=== PATIENT | female | born 1985 | race Two or more races ===

== ENCOUNTER 2019-03-29 13:09 | Emergency (ER) | payer OTHER, MEDICAID ==
[~2019-03-29] VITALS: Ht 152.4 cm; Wt 76.2 kg
[2019-03-29 13:20] VITALS: BP 110/75
--- NOTE | 2019-03-29 13:30 | NUR ---
ED Nurse Note: PT WALKED IN DUE TO LIGHT VAGINAL BLEEDING SINCE YESTERDAY AND DOES NOT KNOW HOW MUCH PADS SHE CONSUMES PER DAY. DENIES ABD PAIN/CRAMPING. STATE SHE IS 2 MONTHS . AAOX4, AMBULATORY WITH NO RESPIRATORY DISTRESS.
--- NOTE | 2019-03-29 14:01 | NUR ---
ED Nurse Note: COLLECTED BLOOD/URINE THEN SENT.
--- NOTE | 2019-03-29 14:05 | NUR ---
ED Nurse Note: PT TAKEN TO US VIA WHEELCHAIR.
[2019-03-29 14:58] LABS: EOSINOPHILS % (AUTO) 5.8 % (0.0-3.0); HEMATOCRIT 41.8 % (37.0-47.0); LYMPHOCYTES % (AUTO) 29.2 % (20.0-45.0); MEAN CORPUSCULAR VOLUME 90 FL (80-99); MONOCYTES % (AUTO) 8.5 % (1.0-10.0); NEUTROPHILS % (AUTO) 55.4 % (45.0-75.0); PLATELET COUNT 283 K/UL (150-450); RED BLOOD COUNT 4.63 M/UL (4.20-5.40); RED CELL DISTRIBUTION WIDTH 10.8 % (11.6-14.8); WHITE BLOOD COUNT 8.6 K/UL (4.8-10.8)
--- NOTE | 2019-03-29 15:00 | NUR ---
ED Nurse Note: PT CAME BACK FROM US VIA WHEELCHAIR AND STABLE.
--- NOTE | 2019-03-29 15:07 | NUR ---
Note wyatt in EDM - 03/29/19 at 1508 by PATRICIA ED Nurse Note: BLANKETS PROVIDED TO PT. PAIN MED GIVEN.
[2019-03-29 15:09] LABS: ANION GAP 12 mmol/L (5-15); APPEARANCE,URINE CLEAR; BILIRUBIN, URINE NEGATIVE (NEGATIVE); BLOOD UREA NITROGEN 7 mg/dL (7-18); CALCIUM 9.3 MG/DL (8.5-10.1); CARBON DIOXIDE 25 MMOL/L (21-32); CHLORIDE 104 MMOL/L (98-107); COLOR,URINE PALE YELLOW; CREATININE 0.6 MG/DL (0.55-1.30); GLUCOSE, URINE (UA) NEGATIVE (NEGATIVE); KETONES,URINE NEGATIVE (NEGATIVE); LEUKOCYTE ESTERASE ,URINE NEGATIVE (NEGATIVE); NITRITE,URINE NEGATIVE (NEGATIVE); PH,URINE 7 (4.5-8.0); POTASSIUM 3.8 MMOL/L (3.5-5.1); PROTEIN,URINE NEGATIVE (NEGATIVE); SODIUM 141 MMOL/L (136-145); UROBILINOGEN,URINE NORMAL MG/DL (0.0-1.0)
[2019-03-29 15:10] LABS: ALANINE AMINOTRANSFERASE 31 U/L (12-78); ALBUMIN 3.8 G/DL (3.4-5.0); ALBUMIN/GLOBULIN RATIO 0.9 (1.0-2.7); ALKALINE PHOSPHATASE 82 U/L (46-116); ASPARTATE AMINO TRANSFERASE 21 U/L (15-37); BILIRUBIN,TOTAL 0.3 MG/DL (0.2-1.0)
--- NOTE | 2019-03-29 15:57 | Emergency Room Report ---
History of Present Illness General Chief Complaint: Vaginal Source: Patient Present Illness HPI 33-year-old female presents to the emergency department complaining of vaginal bleed x2 days. Patient states that she is in her second month of . Patient denies pain. Patient is G2, P1 with previous normal vaginal delivery without complications during the . Patient denies trauma or fall she is unable to estimate how much blood she is lost she reports that she went through 2 or 3 of the thin pads. Patient recently had OB evaluation at a [facility] clinic. Patient denies previous complications this far she denies fevers, chills, nausea or vomiting. She denies vaginal d/c other than blood, denies rashes, sores or swollen tender lymph nodes. Allergies: Coded Allergies: No Known Allergies (Unverified , 03/29/19) Patient History Past Medical History: see triage record Past Surgical History: none Pertinent Family History: none Last Menstrual Period: 01/19/19 Now: Yes - 2 MONTHS : 2 Para: 1 Reviewed Nursing Documentation: PMH: Agreed; PSxH: Agreed Nursing Documentation-PMH Past Medical History: No Stated History Review of Systems All Other Systems: negative except mentioned in HPI Physical Exam Vital Signs Date Time Temp Pulse Resp B/P (MAP) Pulse Ox O2 Delivery O2 Flow Rate FiO2 03/29/19 13:20 98.4 90 16 110/75 (87) 100 Sp02 EP Interpretation: reviewed, normal General Appearance: no apparent distress, alert, GCS 15, non-toxic Head: normocephalic, atraumatic Eyes: bilateral eye normal inspection, bilateral eye PERRL ENT: hearing grossly normal, normal voice Neck: full range of motion Respiratory: lungs clear, normal breath sounds, speaking full sentences Cardiovascular #1: regular rate, rhythm Gastrointestinal: normal bowel sounds, non tender, soft, non-distended, no guarding Genitourinary: normal inspection, no CVA tenderness, cervix normal, ext genitalia/vag normal, os closed Musculoskeletal: gait/station normal, normal range of motion, non-tender Neurologic: alert, oriented x3, responsive, motor strength/tone normal, sensory intact, speech normal, grossly normal Psychiatric: judgement/insight normal Lymphatic: no adenopathy Medical Decision Making PA Attestation Dr. Nunez is my supervising Physician whom patient management has been discussed with. Diagnostic Impression: Primary Impression: Threatened in early ER Course 33-year-old female presents to the emergency department complaining of vaginal bleed x2 days. Patient states that she is in her second month of . Patient denies pain. Patient is G2, P1 with previous normal vaginal delivery without complications during the . Patient denies trauma or fall she is unable to estimate how much blood she is lost she reports that she went through 2 or 3 of the thin pads. Patient recently had OB evaluation at a women's clinic. Patient denies previous complications this far she denies fevers, chills, nausea or vomiting. She denies vaginal d/c other than blood, denies rashes, sores or swollen tender lymph nodes. Ddx considered but are not limited to: Fibroid, ectopic , Fibroid, Spontaneous , Vital signs: are WNL, pt. is afebrile H&PE are most consistent with: Threatened ORDERS: - UA: WNL- consistent with bleeding - rbc's, no evidence of infection. -CBC: WNL -CMP: WNL -serum Hcg Quant: 3175 - Blood/RH type and screen- see attached labs--- A POSITIVE -Pelvic US complete-intrauterine empty gestational sac. cervix is closed. ED INTERVENTIONS: None at this time. pt. denies pain. ---extensively d/w pt. and her visitor regarding her not so promising prognosis , and stressed the importance of repeat US and blood work with OB in 48 hours. D /w pt. miscarriage is the most likely outcome, but it is important to verify complete evacuation. All pt. questions were answered. She had no further questions. She and her visitor verbally demonstrate their understanding and agreement with tx/ F/u plan. DISCHARGE: At this time pt. is stable for d/c to home. Will provide printed patient care instructions, and any necessary prescriptions. Care plan and follow up instructions have been discussed with the patient prior to discharge. Labs Test 03/29/19 14:00 White Blood Count 8.6 K/UL (4.8-10.8) Red Blood Count 4.63 M/UL (4.20-5.40) Hemoglobin 14.0 G/DL (12.0-16.0) Hematocrit 41.8 % (37.0-47.0) Mean Corpuscular Volume 90 FL (80-99) Mean Corpuscular Hemoglobin 30.3 PG (27.0-31.0) Mean Corpuscular Hemoglobin Concent 33.5 G/DL (32.0-36.0) Red Cell Distribution Width 10.8 % (11.6-14.8) Platelet Count 283 K/UL (150-450) Mean Platelet Volume 5.6 FL (6.5-10.1) Neutrophils (%) (Auto) 55.4 % (45.0-75.0) Lymphocytes (%) (Auto) 29.2 % (20.0-45.0) Monocytes (%) (Auto) 8.5 % (1.0-10.0) Eosinophils (%) (Auto) 5.8 % (0.0-3.0) Basophils (%) (Auto) 1.0 % (0.0-2.0) Urine Color Pale yellow Urine Appearance Clear Urine pH 7 (4.5-8.0) Urine Specific Terry 1.005 (1.005-1.035) Urine Protein Negative (NEGATIVE) Urine Glucose (UA) Negative (NEGATIVE) Urine Ketones Negative (NEGATIVE) Urine Blood 4+ (NEGATIVE) Urine Nitrite Negative (NEGATIVE) Urine Bilirubin Negative (NEGATIVE) Urine Urobilinogen Normal MG/DL (0.0-1.0) Urine Leukocyte Esterase Negative (NEGATIVE) Urine RBC 0-2 /HPF (0 - 2) Urine WBC 0 /HPF (0 - 2) Urine Squamous Epithelial Cells Few /LPF (NONE/OCC) Urine Bacteria Occasional /HPF (NONE) Sodium Level 141 MMOL/L (136-145) Potassium Level 3.8 MMOL/L (3.5-5.1) Chloride Level 104 MMOL/L (98-107) Carbon Dioxide Level 25 MMOL/L (21-32) Anion Gap 12 mmol/L (5-15) Blood Urea Nitrogen 7 mg/dL (7-18) Creatinine 0.6 MG/DL (0.55-1.30) Estimat Glomerular Filtration Rate > 60 mL/min (>60) Glucose Level 98 MG/DL (74-106) Calcium Level 9.3 MG/DL (8.5-10.1) Total Bilirubin 0.3 MG/DL (0.2-1.0) Aspartate Amino Transf (AST/SGOT) 21 U/L (15-37) Alanine Aminotransferase (ALT/SGPT) 31 U/L (12-78) Alkaline Phosphatase 82 U/L (46-116) Total Protein 7.9 G/DL (6.4-8.2) Albumin 3.8 G/DL (3.4-5.0) Globulin 4.1 g/dL Albumin/Globulin Ratio 0.9 (1.0-2.7) Human Chorionic Gonadotropin, Quant 3175 mIU/mL (1-6) CT/MRI/US Diagnostic Results CT/MRI/US Diagnostic Results : Imaging Test Ordered: US OB Impression "Intrauterine empty gestational sac. cervix is closed. " Per official radiology report- Please see report for specific details. Last Vital Signs Date Time Temp Pulse Resp B/P (MAP) Pulse Ox O2 Delivery O2 Flow Rate FiO2 03/29/19 13:20 98.4 90 16 110/75 100 Disposition: HOME, SELF-CARE Condition: Stable Scripts No Active Prescriptions or Reported Meds Patient Instructions: Threatened Miscarriage Additional Instructions: Take medications as directed. YOUR HCG LEVEL TODAY WAS: 3175 Follow up with a OBGYN within 3 days, For repeat Ultrasound, as you are estimated to be approx 7 weeks, and 6 days with an empty gestational sac, and no complete . even if your symptoms have resolved. Return sooner to ED if new symptoms occur, or current symptoms become worse. - Please note that this Emergency Department Report was dictated using [employer] area supervisor technology software, occasionally this can lead to erroneous entry secondary to interpretation by the dictation equipment. Isabella Michael Mar 29, 2019 15:57
[2019-03-29 16:08] VITALS: BP 122/78
--- NOTE | 2019-03-29 16:08 | NUR ---
ER DISCHARGE NOTE: Patient is cleared to be discharged per PA, pt is aox4, on room air, with stable vital signs. pt was given dc instructions, pt was able to verbalize understanding, pt id band removed. pt is able to ambulate with steady gait. pt took all belongings and left with her family member.
--- NOTE | 2019-03-29 20:18 | Diagnostic Imaging Report ---
TRANSABDOMINAL AND TRANSPELVIC ULTRASOUND INDICATION: , pelvic pain. Unknown last menstrual period. TECHNIQUE: Transabdominal and endovaginal pelvic ultrasound was performed with duplex Doppler evaluation. FINDINGS: Uterus: Uterus is retroverted and measures 8.7 x 4.7 x 7.5 cm. There is an intrauterine gestational sac with a mean sac diameter of 3 cm, corresponding to a gestational age of 7 weeks, 4 days. No embryo or yolk sac is identified. Right ovary: Right ovary measures 3.9 x 2.5 x 3.1 cm. Vascular flow is confirmed with Doppler imaging. Within the right ovary, there is an anechoic structure measuring 3.7 x 3.1 x 3.8 cm, likely representing corpus luteum/luteal cyst.. Left ovary: Left ovary measures 2.5 x 1.6 x 3.1 cm. Vascular flow is confirmed on Doppler imaging. No mass identified. No significant free fluid. IMPRESSION: Intrauterine gestational sac without embryo or yolk sac identified. Given the gestational sac mean diameter of 3 cm, these findings are highly suspicious for failed early . However, as there is no known less menstrual period for gestational age calculation, close interval follow-up with beta hCG and transvaginal ultrasound may be warranted for confirmation.
== END 2019-03-29 16:08 | disposition home or self-care (01) ==
LOC: EMR 15:48
DX: O20.0 Threatened abortion (principal); Z3A.01 Less than 8 weeks gestation of pregnancy
CPT/HCPCS: 36415; 76801; 76830; 80053; 81003; 84702; 85025; 86900; 86901; 99284